=== PATIENT | female | born 1975 | race American Indian/Alaskan Native ===

== ENCOUNTER 2020-08-25 14:55 | Emergency (ER) | payer SELFPAY ==
[2020-08-25 15:44] VITALS: BP 118/81
[2020-08-25] MEDS ORDERED: BUTALB/ACETAMINOPHEN/CAFFEINE TAB PO STA (15:46)
--- NOTE | 2020-08-25 15:51 | Emergency Department Report ---
ED General Adult HPI - General Chief complaint: Extremity Injury, Lower Stated complaint: KNEE/HIP INJURY/HEADACHE Time Seen by Provider: 08/25/20 15:46 Source: patient Mode of arrival: Ambulatory Limitations: No Limitations - History of Present Illness Initial comments: 44-year-old -[place] female patient presents with complaints of bilateral knee pain and headache x yesterday after a trip and fall. She denies any head trauma, loss of consciousness, numbness/tingling/weakness in the limbs, difficulty with speech/ambulation, confusion, or memory loss. Patient has a history of hypertension states compliance with her blood pressure medications. She rates her knee pain as a 10/10 in severity and her headache as a 9/10 in severity. She admits to mild blurry vision. No history of migraines per patient. She reports taking Aleve which did not relieve her knee or hip pain. Patient denies thunderclap onset of headache or worst headache of her life. She also denies being on blood thinners. - Related Data Previous Rx's Medication Instructions Recorded Last Taken Type Butalb/Acetamin/Caff 50-325-40 1 each PO Q4H PRN #10 tablet 11/29/14 Unknown Rx [Fioricet] Cyclobenzaprine [Flexeril 10mg] 5 mg PO TID PRN #15 tablet 11/29/14 Unknown Rx Ibuprofen [Motrin] 800 mg PO Q8H PRN #21 tablet 11/29/14 Unknown Rx Cyclobenzaprine HCl [Flexeril 5mg] 5 mg PO TID #20 tablet 02/04/15 Unknown Rx Fluconazole [Diflucan] 150 mg PO ONCE #1 tablet 02/04/15 Unknown Rx Ibuprofen [Motrin] 800 mg PO Q8H #20 tablet 02/04/15 Unknown Rx Sulfamethoxazole/Trimethoprim 1 each PO BID #20 tablet 02/04/15 Unknown Rx [Bactrim Ds] cephALEXin [Keflex] 500 mg PO BID #20 capsule 02/04/15 Unknown Rx traMADoL [Ultram 50 MG tab] 50 mg PO Q6HR PRN #20 tablet 02/04/15 Unknown Rx Acetaminophen/Codeine [Tylenol #3] 1 tab PO Q6H PRN #15 tab 07/07/15 Unknown Rx Ondansetron [Zofran Odt] 4 mg PO Q4H PRN #10 tab.rapdis 07/07/15 Unknown Rx HYDROcodone/APAP 5-325 [[place] 1 each PO Q6HR PRN #14 tablet 02/17/16 Unknown Rx 5/325] Butalb/Acetamin/Caff 50-325-40 1 each PO Q8H PRN #6 tablet 08/25/20 Unknown Rx [Fioricet 50-325-40] Diclofenac Sodium 75 mg PO BID PRN #14 tablet. 08/25/20 Unknown Rx Allergies Allergy/AdvReac Type Severity Reaction Status Date / Time No Known Allergies Allergy Unverified 11/29/14 13:29 ED Review of Systems ROS: Stated complaint: KNEE/HIP INJURY/HEADACHE Other details as noted in HPI Constitutional: denies: chills, fever Eyes: vision change. denies: eye pain Respiratory: denies: cough, shortness of breath Cardiovascular: denies: chest pain Gastrointestinal: denies: abdominal pain, nausea, vomiting Musculoskeletal: arthralgia. denies: joint swelling Skin: denies: change in color Neurological: headache. denies: weakness, numbness, paresthesias, confusion, abnormal gait Hematological/Lymphatic: denies: easy bleeding ED Past Medical Hx - Past Medical History Previous Medical History?: Yes Hx Hypertension: Yes Additional medical history: Vaginal delivery x 3 - Surgical History Hx Cholecystectomy: Yes Additional Surgical History: Vascular surgery, - Social History Smoking Status: Never Smoker - Medications Home Medications: Home Medications Medication Instructions Recorded Confirmed Last Taken Type Butalb/Acetamin/Caff 50-325-40 1 each PO Q4H PRN #10 tablet 11/29/14 Unknown Rx [Fioricet] Cyclobenzaprine [Flexeril 10mg] 5 mg PO TID PRN #15 tablet 11/29/14 Unknown Rx Ibuprofen [Motrin] 800 mg PO Q8H PRN #21 tablet 11/29/14 Unknown Rx Cyclobenzaprine HCl [Flexeril 5mg] 5 mg PO TID #20 tablet 02/04/15 Unknown Rx Fluconazole [Diflucan] 150 mg PO ONCE #1 tablet 02/04/15 Unknown Rx Ibuprofen [Motrin] 800 mg PO Q8H #20 tablet 02/04/15 Unknown Rx Sulfamethoxazole/Trimethoprim 1 each PO BID #20 tablet 02/04/15 Unknown Rx [Bactrim Ds] cephALEXin [Keflex] 500 mg PO BID #20 capsule 02/04/15 Unknown Rx traMADoL [Ultram 50 MG tab] 50 mg PO Q6HR PRN #20 tablet 02/04/15 Unknown Rx Acetaminophen/Codeine [Tylenol #3] 1 tab PO Q6H PRN #15 tab 07/07/15 Unknown Rx Ondansetron [Zofran Odt] 4 mg PO Q4H PRN #10 tab.rapdis 07/07/15 Unknown Rx HYDROcodone/APAP 5-325 [[place] 1 each PO Q6HR PRN #14 tablet 02/17/16 Unknown Rx 5/325] Butalb/Acetamin/Caff 50-325-40 1 each PO Q8H PRN #6 tablet 08/25/20 Unknown Rx [Fioricet 50-325-40] Diclofenac Sodium 75 mg PO BID PRN #14 tablet. 08/25/20 Unknown Rx ED Physical Exam - General Limitations: No Limitations General appearance: alert, in no apparent distress - Head Head exam: Present: atraumatic, normocephalic - Eye Eye exam: Present: normal appearance, PERRL. Absent: scleral icterus - Neck Neck exam: Present: full ROM. Absent: tenderness - Respiratory Respiratory exam: Present: normal lung sounds bilaterally. Absent: respiratory distress - Cardiovascular Cardiovascular Exam: Present: regular rate, normal rhythm. Absent: systolic murmur, diastolic murmur, rubs, gallop - Extremities Exam Extremities exam: Present: full ROM, other (Tenderness noted to the knees) - Neurological Exam Neurological exam: Present: alert, oriented X3, CN II-XII intact, normal gait. Absent: motor sensory deficit - Expanded Neurological Exam Expanded Cerebellar function: Finger to Nose: Normal, Heel to Chapin: Normal, Romberg: Normal Sensory exam: Upper Extremity Light Touch: Normal, Lower Extremity Light Touch: Normal Motor strength exam: RUE: 5, LUE: 5, RLE: 5, LLE: 5 - Psychiatric Psychiatric exam: Present: normal affect, normal mood - Skin Skin exam: Present: warm, dry, intact, normal color. Absent: rash ED Course Vital Signs 08/25/20 15:41 Temperature 97.8 F Pulse Rate 95 H Respiratory 18 Rate Blood Pressure 118/81 O2 Sat by Pulse 94 Oximetry ED Medical Decision Making - Radiology Data Radiology results: report reviewed Procedure(s): XR knee BILAT 3V Accession Number(s): [id number] cc: MANUEL NORIEGA Fluoro Time In Minutes: HISTORY:pain after fall COMPARISON: None. TECHNIQUE: AP lateral and obliques views were obtained FINDINGS: Bones: No fracture or dislocation. Joint spaces: Maintained. Soft tissues: No significant abnormality. Additional findings: None. IMPRESSION: 1. No significant abnormality. CT head/brain wo con INDICATION / CLINICAL INFORMATION: 44 years Female; frontal headache, blurry vision. TECHNIQUE: Routine CT head without contrast. All CT scans at this location are performed using CT dose reduction for ALARA by means of automated exposure control. COMPARISON: None. FINDINGS: BRAIN / INTRACRANIAL CONTENTS: The brain demonstrates appropriate attenuation. The ventricular system is within normal limits in size and configuration. There is no clear CT evidence of acute intracranial hemorrhage or significant mass effect. ORBITS: No significant abnormality of visualized orbits. SINUSES / MASTOIDS: No significant abnormality in the visualized paranasal sinuses or mastoid air cells. CRANIOCERVICAL JUNCTION: No significant abnormality. ADDITIONAL FINDINGS: None. IMPRESSION: 1. There is no CT evidence of acute intracranial process. - Medical Decision Making 44-year-old -[place]ish female patient presents with complaints of bilateral knee pain and headache x yesterday after a trip and fall. She denies any head trauma, loss of consciousness, numbness/tingling/weakness in the limbs, difficulty with speech/ambulation, confusion, or memory loss. Patient has a history of hypertension states compliance with her blood pressure medications. She rates her knee pain as a 10/10 in severity and her headache as a 9/10 in severity. She admits to mild blurry vision. No history of migraines per patient. She reports taking Aleve which did not relieve her knee or hip pain. Patient denies thunderclap onset of headache or worst headache of her life. She also denies being on blood thinners. CT head and x-ray of knees are without acute abnormalities. Headache improved with Fioricet, however she still rates it as a 6/10 in severity. Offered patient lab work and IV medication-patient declined stating she would like to go home and monitor her symptoms. Patient is neurologically intact. Recommend high water intake. Patient well-appearing, she is stable for discharge home. Rice method recommended for knees. Patient to follow-up with her PCP in 3 days. Discussed signs and symptoms that should prompt immediate return to the emergency department in detail with patient verbalizes understanding. Critical care attestation.: If time is entered above; I have spent that time in minutes in the direct care of this critically ill patient, excluding procedure time. ED Disposition Clinical Impression: Knee sprain, bilateral Headache, acute Qualifiers: Headache type: tension-type Intractability: not intractable Qualified Code(s): G44.209 - Tension-type headache, unspecified, not intractable Disposition: DC-01 TO HOME OR SELFCARE Is pt being admited?: No Condition: Stable Instructions: Tension Headache, Adult, [id number], Knee Sprain, Adult Prescriptions: Diclofenac Sodium 75 mg PO BID PRN #14 tablet. PRN Reason: pain Butalb/Acetamin/Caff 50-325-40 [Fioricet 50-325-40] 1 each PO Q8H PRN #6 tablet PRN Reason: Headache Referrals: [facility] [place] [Provider Group] - 3-5 Days
--- NOTE | 2020-08-25 16:22 | XRay Report ---
HISTORY:pain after fall COMPARISON: None. TECHNIQUE: AP lateral and obliques views were obtained FINDINGS: Bones: No fracture or dislocation. Joint spaces: Maintained. Soft tissues: No significant abnormality. Additional findings: None. IMPRESSION: 1. No significant abnormality. Signer Name: Peter Li MD Signed: 08/25/2020 4:18 PM Workstation Name: [id number]
--- NOTE | 2020-08-25 17:08 | Cat Scan Report ---
CT head/brain wo con INDICATION / CLINICAL INFORMATION: 44 years Female; frontal headache, blurry vision. TECHNIQUE: Routine CT head without contrast. All CT scans at this location are performed using CT dos e reduction for ALARA by means of automated exposure control. COMPARISON: None. FINDINGS: BRAIN / INTRACRANIAL CONTENTS: The brain demonstrates appropriate attenuation. The ventricular system is within normal limits in size and configuration. There is no clear CT evidence of acute intracrani al hemorrhage or significant mass effect. ORBITS: No significant abnormality of visualized orbits. SINUSES / MASTOIDS: No significant abnormality in the visualized paranasal sinuses or mastoid air mathew ls. CRANIOCERVICAL JUNCTION: No significant abnormality. ADDITIONAL FINDINGS: None. IMPRESSION: 1. There is no CT evidence of acute intracranial process. Signer Name: Fady Menon MD Signed: 08/25/2020 5:04 PM Workstation Name: [id number]
== END 2020-08-25 15:50 | disposition home or self-care (01) ==
LOC: ED 14:55
DX: S83.92XA Sprain of unspecified site of left knee, initial encounter (principal); S83.91XA Sprain of unspecified site of right knee, initial encounter; R51.9 Headache, unspecified; I10 Essential (primary) hypertension; Z79.899 Other long term (current) drug therapy; W01.0XXA Fall on same level from slipping, tripping and stumbling without subsequent striking against object, initial encounter; Y93.89 Activity, other specified; Y92.89 Other specified places as the place of occurrence of the external cause; Y99.8 Other external cause status
CPT/HCPCS: 70450